=== PATIENT | female | born 1995 | race Caucasian/White ===

== ENCOUNTER 2024-07-16 11:25 | Emergency (ER) | payer OTHER, SELFPAY ==
[2024-07-16 12:18] LABS: Specific Gravity < 1.005 (1.005-1.030); Sqamous Epithelial <5 /HPF (None Seen); Urine Bacteria <20 /HPF (<20); Urine Bilirubin NEGATIVE (Negative); Urine Blood Negative (Negative); Urine Clarity Turbid (Clear); Urine Color Colorless (Yellow); Urine Crystals Unidentified Few /HPF (None Seen); Urine Culture Reflex Order NOT NEEDED; Urine Glucose NEGATIVE (Negative); Urine Ketones NEGATIVE (Negative); Urine Microscopic Reflex YN ORDER UMIC; Urine Nitrite NEGATIVE (Negative); Urine Protein NEGATIVE (Negative); Urine RBC <5 /HPF (None Seen); Urine Urobilinogen Normal (Normal); Urine WBC <5 /HPF (<5); Urine Yeast (Budding) Trace /HPF (None Seen); Urine pH 6.5 (5.0-7.0)
[2024-07-16 12:21] LABS: Specific Gravity < 1.005 (1.005-1.030)
[2024-07-16 12:23] LABS: Absolute Basophils 0.1 K/uL (0-0.5); Absolute Eosinophils 0.1 K/uL (0-0.5); Absolute Lymphocytes (CBC) 3.5 K/uL (0.7-4.9); Absolute Monocytes 0.8 K/uL (0.1-1.3); Absolute Neutrophil 5.3 K/uL (1.8-8.0); Basophils % 0.5 % (0-1.3); Eosinophils % 0.6 % (0-4.4); Hematocrit 37.3 % (36.0-45.0); Hemoglobin 12.7 g/dL (12.0-15.0); Lymphocytes % 36.1 % (15.3-44.8); MCH 30.1 pg (27.0-35.0); MCHC 33.9 g/dL (32.0-36.0); MCV 88.9 fL (80-100); Monocytes % 8.1 % (3.3-12.3); Neutrophils % 54.7 % (41.7-73.7); Platelets 309 thou/uL (152-406); Red Cell Distribution Width 13.7 % (12.1-15.2)
[2024-07-16 12:30] LABS: Barbiturates NEGATIVE (NEGATIVE); Benzodiazepines NEGATIVE (NEGATIVE); Cocaine NEGATIVE (NEGATIVE); METHAMPHETAM NEGATIVE (NEGATIVE); Methadone NEGATIVE (NEGATIVE); Opiates NEGATIVE (NEGATIVE); Phencyclidine NEGATIVE (NEGATIVE); THC Cannibis NEGATIVE (NEGATIVE)
[2024-07-16] MEDS ORDERED: NA CHLORIDE 0.9% 1,000 ML ONE (13:09)
[2024-07-16 13:18] LABS: Albumin 4.1 g/dL (3.4-5.0); Albumin/Globulin Ratio 1.2 (1.1-1.8); Anion Gap 8.5 mEq/L (5.0-15.0); Bilirubin Total 0.5 mg/dL (0.2-1.0); Globulin 3.5 g/dL (2.3-3.5); Potassium 3.5 mEq/L (3.5-5.1); Protein, Total 7.6 g/dL (6.4-8.2)
[2024-07-16] MEDS ORDERED: ACYCLOVIR 400 MG TABLET ONE (14:38)
[2024-07-16] MEDS ORDERED: predniSONE 20 MG TAB ONE (14:38)
--- NOTE | 2024-07-16 14:52 | RAD REPORT ---
EXAMINATION: CAROTID DUPLEX ULTRASOUND CLINICAL INDICATION: DIZZINESS TECHNIQUE: Real-time grayscale, color flow and spectral Doppler sonographic images were obtained of t he extracranial carotid system using a linear transducer. COMPARISON: No prior exam. FINDINGS: RIGHT: Common carotid artery: 82 cm/s Internal carotid artery: 89 cm/s External carotid artery: 74 cm/s Right ICA/CCA ratio: 1.1 Plaque: No significant plaquing seen. Vertebral artery Antegrade LEFT: Common carotid artery: 100 cm/s Internal carotid artery: 89 cm/s External carotid artery: 72 cm/s Left ICA/CCA ratio: 0.9 Plaque: No significant plaquing seen. Vertebral artery Antegrade IMPRESSION: No hemodynamically significant stenosis (greater than 50%) within the extracranial internal carotid a rteries. The degrees of stenosis, if any, are quantified according to the consensus statement of the Society o f Radiologists in Ultrasound (SRUS). Please refer to Konstantin E, Sukhjinder C, Jae G et al. Carotid Artery Stenosis: Johnson-Scale and Doppler US Diagnosis--Society of Radiologists in Ultrasound Consensus Conference. Radiology. 2003;229(2):340-6.
--- NOTE | 2024-07-16 15:15 | RAD REPORT ---
EXAMINATION: MRI BRAIN WITHOUT CONTRAST CLINICAL INDICATION: NUMBNESS TECHNIQUE: Multiplanar multisequence MR images of the brain were obtained without intravenous contras t. Unless otherwise specified, incidental findings do not require dedicated imaging follow-up. COMPARISON: No prior exam. FINDINGS: INTRACRANIAL: Diffusion-weighted images show no acute or early subacute infarction. No abnormal brain parenchymal signal. The ventricles are normal in size and morphology. No augmented susceptibility. There is no mass effect or midline shift. No abnormal extraaxial fluid collection. VASCULATURE: Normal signal voids in the larger intracranial arteries and dural venous sinuses. SINUSES: The paranasal sinuses and mastoid air cells are predominantly clear. BONE: The marrow signal pattern is within normal limits. IMPRESSION: Negative for acutre CVA or other acute intracranial finding.
--- NOTE | 2024-07-16 15:19 | EDPHYS ---
Physician Documentation [facility] Name: Octavia Zhang Age: 28 yrs Sex: Female : 1995 Arrival Date: 07/16/2024 Time: 11:25 Bed 20 Private MD: ED Physician Wesley Clement HPI: 07/16 14:21 This 28 yrs old Female presents to ER via Wheelchair with complaints of olvin Blurred Vision, Numbness Of Mouth. 14:21 The patient presents to the emergency department with paresthesias of the left side of olvin the face, mouth and head. Onset: The symptoms/episode began/occurred just prior to arrival, this morning. Context: occurred at home. Associated signs and symptoms: The patient has no apparent associated signs or symptoms. Severity of symptoms: At their worst the symptoms were mild in the emergency department the symptoms are unchanged. Patient's baseline: Neuro: alert and fully oriented. Current symptoms: headache, that is mild, paralysis or paresis, of the mouth and head, that is mild. The patient has not experienced similar symptoms in the past. LEFT TOUNGE, LEFT FACE WEAK, FOREHEAD TOO. Historical: - Allergies: 12:08 No Known Allergies; cm10 - Home Meds: 12:08 None [Active]; cm10 - PMHx: 12:08 None; cm10 - PSHx: 12:08 None; cm10 - Immunization history:: Adult Immunizations up to date. - Infectious Disease History:: Denies. - Social history:: Smoking status: Reported history of juuling and/or vaping. ROS: 14:23 Constitutional: Negative for fever, chills, and weight loss, Eyes: Negative for injury, olvin pain, redness, and discharge, ENT: Negative for injury, pain, and discharge, Neck: Negative for injury, pain, and swelling, Cardiovascular: Negative for chest pain, palpitations, and edema, Respiratory: Negative for shortness of breath, cough, wheezing, and pleuritic chest pain, Abdomen/GI: Negative for abdominal pain, nausea, vomiting, diarrhea, and constipation, Back: Negative for injury and pain, : Negative for injury, bleeding, discharge, and swelling, MS/Extremity: Negative for injury and deformity, Skin: Negative for injury, rash, and discoloration, Psych: Negative for depression, anxiety, suicide ideation, homicidal ideation, and hallucinations, Allergy/Immunology: Negative for hives, rash, and allergies, Endocrine: Negative for neck swelling, polydipsia, polyuria, polyphagia, and marked weight changes, Hematologic/Lymphatic: Negative for swollen nodes, abnormal bleeding, and unusual bruising, 14:23 Neuro: Positive for weakness, of the mouth and head, Exam: 14:23 Constitutional: This is a well developed, well nourished patient who is awake, alert, olvin and in no acute distress. Eyes: Pupils equal round and reactive to light, extra-ocular motions intact. Lids and lashes normal. Conjunctiva and sclera are non-icteric and not injected. Cornea within normal limits. Periorbital areas with no swelling, redness, or edema. ENT: Nares patent. No nasal discharge, no septal abnormalities noted. Tympanic membranes are normal and external auditory canals are clear. Oropharynx with no redness, swelling, or masses, exudates, or evidence of obstruction, uvula midline. Mucous membranes moist. Neck: Trachea midline, no thyromegaly or masses palpated, and no cervical lymphadenopathy. Supple, full range of motion without nuchal rigidity, or vertebral point tenderness. No Meningismus. Chest/axilla: Normal chest wall appearance and motion. Nontender with no deformity. No lesions are appreciated. Cardiovascular: Regular rate and rhythm with a normal S1 and S2. No gallops, murmurs, or rubs. Normal PMI, no JVD. No pulse deficits. Respiratory: Lungs have equal breath sounds bilaterally, clear to auscultation and percussion. No rales, rhonchi or wheezes noted. No increased work of breathing, no retractions or nasal flaring. Abdomen/GI: Soft, non-tender, with normal bowel sounds. No distension or tympany. No guarding or rebound. No evidence of tenderness throughout. Back: No spinal tenderness. No costovertebral tenderness. Full range of motion. Skin: Warm, dry with normal turgor. Normal color with no rashes, no lesions, and no evidence of cellulitis. MS/ Extremity: Pulses equal, no cyanosis. Neurovascular intact. Full, normal range of motion., bilateral aka Neuro: Awake and alert, GCS 15, oriented to person, place, time, and situation. Cranial nerves II-XII grossly intact. Motor strength 5/5 in all extremities. Sensory grossly intact. Cerebellar exam normal. Normal gait. Psych: Awake, alert, with orientation to person, place and time. Behavior, mood, and affect are within normal limits. 14:23 Neuro: Orientation: is normal, appropriate for stated age, no acute changes, Mentation: is normal, appropriate for stated age, no acute changes, Memory: is normal, Cranial nerves: facial droop noted on left, with forehead involved. Decreased sensation on tongue, Motor: is normal, is grossly normal based on the patient's age, no acute changes, moves all fours, strength is 5/5 in all extremities, Gait: is steady, appropriate for age, Deep tendon reflexes are 2+ (normal) in the bilateral brachioradialis, bicep, tricep and patellar and Achilles tendons, Babinski testing is normal, seizure activity, is not displayed by the patient, Vital Signs: 12:05 BP 118 / 84; Pulse 78; Resp 15; Temp 98.8(O); Pulse Ox 100% ; Weight 81.65 kg; Height 5 cm10 ft. 5 in. ; Pain 4/10; 13:21 BP 125 / 98; Pulse 72; Resp 18; Pulse Ox 99% on R/A; ld1 14:25 BP 125 / 80; Pulse 65; Resp 18; Pulse Ox 100% on R/A; ld1 15:23 BP 126 / 79; Pulse 61; Resp 18; Pulse Ox 100% on R/A; ld1 12:05 Body Mass Index 29.95 (81.65 kg, 165.1 cm) cm10 12:05 Pain Scale: Adult cm10 MDM: 11:40 Medical Screening Exam initiated olvin 14:25 Data reviewed: vital signs, nurses notes, lab test result(s), radiologic studies, MRI. [facility] Consideration of Admission/Observation Escalation of care including admission/observation considered. I considered the following discharge prescriptions or medication management in the emergency department Medications were administered in the Emergency Department. See MAR. Independent interpretation of the following test(s) in the Emergency Department MRI: My interpretation is MRI BRAIN. Test considered but Not performed: CT: NO CT BRAIN. Historians other than the Patient: Parent: MOM WELL INFORMED. Care significantly affected by the following chronic conditions: NONE. Counseling: I had a detailed discussion with the patient and/or guardian regarding the historical points, exam findings, and any diagnostic results supporting the discharge/admit diagnosis. 07/16 11:41 Order name: CBC with Diff; Complete Time: 14:18 [facility] 07/16 11:41 Order name: Comprehensive Metabolic Panel; Complete Time: 14:18 [facility] 07/16 11:41 Order name: Urinalysis w/ reflexes; Complete Time: 14:18 olvin 07/16 11:41 Order name: UDS; Complete Time: 14:18 [facility] 07/16 11:41 Order name: PREGU; Complete Time: 14:18 [facility] 07/16 14:21 Order name: US Carotid Artery Bilateral olvin 07/16 14:45 Order name: Brain Wo Cont EDMS 07/16 12:28 Order name: Labs - recollect needed: green and purple; Complete Time: 12:42 bc6 Administered Medications: 13:20 Drug: NS 0.9% IV 1000 ml IV at 1000 ml once; to be given as a bolus over 60 minutes ld1 Route: IV; Rate: 1000 ml; Site: right antecubital; 15:19 Drug: valACYclovir PO 1000 mg PO once Route: PO; ld1 15:23 Follow up: Response: No adverse reaction ld1 15:19 Drug: predniSONE PO 60 mg PO once Route: PO; ld1 15:23 Follow up: Response: No adverse reaction ld1 Disposition Summary: 07/16/24 15:19 Discharge Ordered Notes: Location: Home olvin Problem: new olvin Symptoms: have improved olvin Condition: Stable olvin Diagnosis - Puckett's palsy olvin Followup: olvin - With: Private Physician - When: 2 - 3 days - Reason: Recheck today's complaints, Continuance of care, Re-evaluation by your physician Followup: olvin - With: Yuniel Workman MD - When: 2 - 3 days - Reason: Recheck today's complaints, Re-evaluation by your physician Discharge Instructions: - Discharge Summary Sheet olvin - Puckett's Palsy, Adult [facility] Forms: - Medication Reconciliation Form [facility] - Antibiotic Education [facility] - Prescription Opioid Use [facility] - Patient Portal Instructions [facility] - Leadership Thank You Letter [facility] Prescriptions: - Artificial Eye Lubricant 83-15 % Ophthalmic ointment - instill 1 application OPHTHALMIC route 3 to 4 times per day as needed for dry olvin eyes; 10 milliliter; Refills: 0, Product Selection Permitted - Valtrex 1 gram Oral tablet - take 1 tablet ORAL route 3 times per day; 21 tablet; Refills: 0, Product olvin Selection Permitted - Prednisone 20 mg Oral tablet - take 3 tablets ORAL route once daily for 4 days; 12 tablet; Refills: 0, Product olvin Selection Permitted Signatures: Dispatcher [employer] Wesley Mcfarland MD MD cha Sims, Lauren, RN RN ld1 Odilia Lawrence6 Maureen Lamas RN RN cm10 Corrections: (The following items were deleted from the chart) 14:45 14:18 MR STROKE PROTOCOL+MRI.RAD.BRZ ordered. AVERY VARELA
--- NOTE | 2024-07-16 15:19 | ER ---
Nurse's Notes [facility] Name: Octavia Zhang Age: 28 yrs Sex: Female : 1995 Arrival Date: 07/16/2024 Time: 11:25 Bed 20 Private MD: Diagnosis: Puckett's palsy Presentation: 07/16 12:05 Chief complaint: Patient states: Sitting at work and started having blurred vision and cm10 numbness to her mouth. Pt states that when she stands her legs feel unsteady. Pt states that her blurred vision has resolved. Coronavirus screen: Client denies travel out of the [place] in the last 14 days. Ebola Screen: Patient denies travel to an Ebola-affected area in the 21 days before illness onset. Initial Sepsis Screen: Does the patient meet any 2 criteria? No. Patient's initial sepsis screen is negative. Does the patient have a suspected source of infection? No. Patient's initial sepsis screen is negative. Risk Assessment: Do you want to hurt yourself or someone else? Patient reports no desire to harm self or others. Onset of symptoms was July 16, 2024. 12:05 Method Of Arrival: Wheelchair cm10 12:05 Acuity: MARIAH 3 cm10 Triage Assessment: 12:08 General: Appears in no apparent distress. comfortable, Behavior is calm, cooperative. cm10 Pain: Complains of pain in head Pain currently is 4 out of 10 on a pain scale. Neuro: No deficits noted. Level of Consciousness is awake, alert, obeys commands, Oriented to person, place, time, situation, Appropriate for age Reports blurred vision dizziness, numbness in mouth. Respiratory: No deficits noted. Airway is patent Respiratory effort is even, unlabored, Respiratory pattern is regular, symmetrical. Historical: - Allergies: 12:08 No Known Allergies; cm10 - Home Meds: 12:08 None [Active]; cm10 - PMHx: 12:08 None; cm10 - PSHx: 12:08 None; cm10 - Immunization history:: Adult Immunizations up to date. - Infectious Disease History:: Denies. - Social history:: Smoking status: Reported history of juuling and/or vaping. Screenin:[facility] ED Fall Risk Assessment (Adult) History of falling in the last 3 months, ld1 including since admission No falls in past 3 months (0 pts) Confusion or Disorientation No (0 pts) Intoxicated or Sedated No (0 pts) Impaired Gait No (0 pts) Mobility Assist Device Used No (0 pt) Altered Elimination No (0 pt) Score/Fall Risk Level 0 - 2 = Low Risk Oriented to surroundings, Hourly rounding (assess needs \T\ fall precautionary measures) done. Abuse screen: Denies threats or abuse. Denies injuries from another. Nutritional screening: No deficits noted. Tuberculosis screening: No symptoms or risk factors identified. Assessment: 14:25 General: Appears in no apparent distress. comfortable, Behavior is calm, cooperative, ld1 appropriate for age. Pain: Denies pain. Neuro: Level of Consciousness is awake, alert, obeys commands, Oriented to person, place, time, situation. Cardiovascular: Capillary refill < 3 seconds Patient's skin is warm and dry. Rhythm is sinus rhythm. Respiratory: Airway is patent Respiratory effort is even, unlabored. GI: Abdomen is flat, non-distended. : No signs and/or symptoms were reported regarding the genitourinary system. EENT: No signs and/or symptoms were reported regarding the EENT system. Derm: No signs and/or symptoms reported regarding the dermatologic system. Musculoskeletal: No signs and/or symptoms reported regarding the musculoskeletal system. 15:23 Reassessment: Patient appears in no apparent distress at this time. No changes from ld1 previously documented assessment. Patient and/or family updated on plan of care and expected duration. Pain level reassessed. Patient is alert, oriented x 3, equal unlabored respirations, skin warm/dry/pink. Patient denies pain at this time. Vital Signs: 12:05 BP 118 / 84; Pulse 78; Resp 15; Temp 98.8(O); Pulse Ox 100% ; Weight 81.65 kg; Height 5 cm10 ft. 5 in. ; Pain 4/10; 13:21 BP 125 / 98; Pulse 72; Resp 18; Pulse Ox 99% on R/A; ld1 14:25 BP 125 / 80; Pulse 65; Resp 18; Pulse Ox 100% on R/A; ld1 15:23 BP 126 / 79; Pulse 61; Resp 18; Pulse Ox 100% on R/A; ld1 12:05 Body Mass Index 29.95 (81.65 kg, 165.1 cm) cm10 12:05 Pain Scale: Adult cm10 ED Course: 11:29 Patient arrived in ED. al6 11:40 Wesley Clement MD is Attending Physician. olivn 12:07 PREGU Sent. ty 12:07 UDS Sent. ty 12:07 Urinalysis w/ reflexes Sent. ty 12:07 Comprehensive Metabolic Panel Sent. ty 12:07 CBC with Diff Sent. ty 12:07 Initial lab(s) drawn, by me, sent to lab. Urine collected: clean catch specimen, clear. ty Inserted saline lock: 20 gauge in right antecubital area, using aseptic technique. Blood collected. Flushed with 10 mL NS. 12:08 Triage completed. cm10 12:08 Arm band placed on right wrist. Patient placed in waiting room. cm10 13:21 Victoria Hughes, RN is Primary Nurse. ld1 14:26 No provider procedures requiring assistance completed. ld1 14:26 Patient has correct armband on for positive identification. Placed in gown. Bed in low ld1 position. Call light in reach. Side rails up X2. wrapping clerk on. Pulse ox on. NIBP on. Door closed. Noise minimized. Warm blanket given. 14:45 US Carotid Artery Bilateral In Process Unspecified. EDMS 15:10 Brain Wo Cont In Process Unspecified. EDMS 15:18 Yuniel Workman MD is Referral Physician. olvin 15:24 IV discontinued, intact, bleeding controlled, No redness/swelling at site. ld1 Administered Medications: 13:20 Drug: NS 0.9% IV 1000 ml IV at 1000 ml once; to be given as a bolus over 60 minutes ld1 Route: IV; Rate: 1000 ml; Site: right antecubital; 15:19 Drug: valACYclovir PO 1000 mg PO once Route: PO; ld1 15:23 Follow up: Response: No adverse reaction ld1 15:19 Drug: predniSONE PO 60 mg PO once Route: PO; ld1 15:23 Follow up: Response: No adverse reaction ld1 Medication: 14:26 VIS not applicable for this client. ld1 Outcome: 15:19 Discharge ordered by . olvin 15:24 Discharged to home ambulatory, ld1 15:24 Condition: stable 15:24 Discharge instructions given to patient, Instructed on discharge instructions, follow up and referral plans. medication usage, Demonstrated understanding of instructions, follow-up care, medications, Prescriptions given X 2, 15:24 Patient left the ED. ld1 Signatures: Dispatcher [employer] Wesley Mcfarland MD MD cha Sims, Lauren, RN RN ld1 Maureen Lamas RN RN cm10 Jorge Bautista Alissa al6
[2024-07-16 15:38] VITALS: TEMP 98.8
[2024-07-16 15:42] VITALS: O2SAT 100
[2024-07-16 15:44] VITALS: BP 126/79
== END 2024-07-16 15:24 | disposition home or self-care (01) ==
LOC: ER 11:25
DX: G51.0 Bell's palsy (principal)
CPT/HCPCS: 36415; 70551; 80053; 80307; 81001; 81025; 85025; 93880; 99285; J7030; J7512